=== PATIENT | male | born 1955 | race Caucasian/White ===

== ENCOUNTER → 2016-11-21 | Day surgery (SDC) | payer BC ==
[~2016-11-21] MED LIST: ADVIL LIQUI-GE200 MG PO; GLUCOTROL XL5 M1 PO; LIPITOR PO; LIPITOR40 MG PO; LOSARTAN PO; METFORMIN HCL500 M1 PO; OMEPRAZOLE40 MG PO; PRAVASTATIN SOD20 MG PO
--- NOTE | ~2016-11-21 | OR ---
Unit #: [id number] #: [id number] Patient: CATERINA ZHANG [id number] [address] [place], [place] [address] [id number] MR#: [id number] NAME: CATERINA ZHANG ROOM: Date of Procedure: 11/21/2016 Admission Date: 11/21/2016 Surgeon: Gilberto Rushing M.D. : 1955 Attending Physician: Gilberto Rushing M.D. Referring Physician: Gilberto Rushing M.D. OPERATIVE REPORT PRIMARY CARE PHYSICIAN Stella Gomez M.D. PREOPERATIVE DIAGNOSES Colorectal cancer surveillance. The patient has personal history of colonic polyps. PROCEDURE PERFORMED Colonoscopy up to cecum with excellent preparation and good visualization. POSTOPERATIVE DIAGNOSES The patient had mild sigmoid and descending colon diverticulosis. Otherwise, examination was normal up to cecum. The quality of the prep was good. RECOMMENDATIONS Repeat colonoscopy in 5 years. SEDATION USED MAC. DESCRIPTION OF PROCEDURE Following detailed explanation of the potential risks and complications of a colonoscopy, namely perforation, bleeding, and complications related to sedation, the patient was brought to GI lab and laid in the left lateral decubitus position. A digital rectal examination was performed, which was normal. Lubricated tip of the Olympus video colonoscope was inserted through the anus and advanced under direct vision. The scope was advanced and passed up to sigmoid into descending colon. Multiple small to medium-sized diverticula were noted in this area. The scope tip was then navigated all the way up to cecum with visualization of the ileocecal valve and the appendiceal orifice. Preparation was excellent with good visualization and photodocumentation was obtained. Last several inches of the terminal ileum also visualized after intubation of the ileocecal valve and appeared normal. Successive segments of the colonic mucosa were examined upon withdrawal and appeared unremarkable. There being no polyps, mass lesions, or AVMs. Other than the scant diverticula noted earlier, no other abnormalities noted. The patient did not have any hemorrhoids at anal verge. The scope was then withdrawn. The patient returned to the recovery area. He tolerated the procedure without any postprocedure complications. Unit #: [id number] #: [id number] Patient: CATERINA ZHANG Dictated by... Ricarda Barber/tian TD: 11/21/2016 23:00 JOB #: [id number] CC: Stella Gomez M.D. OPERATIVE REPORT Page 1 of 1 X Gilberto Rushing MD PROCEDURE OPERATIVE NOTE
== END | disposition home or self-care (01) ==
LOC: COPS 07:56
DX: K57.30 Diverticulosis of large intestine without perforation or abscess without bleeding (principal); E11.9 Type 2 diabetes mellitus without complications; E78.5 Hyperlipidemia, unspecified; J45.909 Unspecified asthma, uncomplicated; Z87.19 Personal history of other diseases of the digestive system; Z86.010 Personal history of colon polyps; Z98.52 Vasectomy status; Z79.899 Other long term (current) drug therapy
CPT/HCPCS: 82947; J2250